=== PATIENT | male | born 1940 ===

== ENCOUNTER → 2018-03-02 | Outpatient (CLI) | payer MEDICARE, OTHER ==
[~2018-03-02] MED LIST: REGADENOSON 0.4 MG/5 ML PF SYRINGE IVP ONE; SESTAMIBI TC99M/UD ISOTOPE 1 EA INJ INJ ONE
[2018-03-02 09:45] VITALS: BP 112/76
[2018-03-02 09:55] VITALS: BP 120/72
== END | disposition home or self-care (01) ==
LOC: CARDMN 08:35
PROVIDERS: ATTEND Internal Medicine Cardiovascular Disease
DX: I25.89 Other forms of chronic ischemic heart disease (principal); I50.1 Left ventricular failure, unspecified; I51.7 Cardiomegaly
CPT/HCPCS: 78452; 93017; 93306; A9500; J2785